=== PATIENT | male | born 1950 | race African-American/Black ===

== ENCOUNTER 2019-08-29 15:19 | Emergency (ER) | payer OTHER ==
[~2019-08-29] VITALS: Ht 175.3 cm; Wt 117.9 kg
[2019-08-29 15:31] VITALS: BP 131/74
== END 2019-08-29 18:24 | disposition left against medical advice (07) ==
LOC: ER 15:19
DX: M79.632 Pain in left forearm (principal); Z53.21 Procedure and treatment not carried out due to patient leaving prior to being seen by health care provider; X50.0XXA Overexertion from strenuous movement or load, initial encounter; Y93.89 Activity, other specified; Y92.242 Post office as the place of occurrence of the external cause; Y99.8 Other external cause status